=== PATIENT | male | born 1985 | race Caucasian/White ===

== ENCOUNTER 2017-11-02 19:16 | Inpatient (IN) ==
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
[2017-11-02 20:18] LABS: Baso # (Auto) 0.1 th/mm3 (0.0-0.2); Baso % (Auto) 0.7 % (0.0-2.0); Eos # (Auto) 0.1 th/mm3 (0.0-0.4); Eos % (Auto) 0.5 % (0.0-4.0); Hemoglobin 14.2 gm/dL (13.0-17.0); Lymph # (Auto) 3.5 th/mm3 (1.0-4.8); Lymph % (Auto) 28.1 % (9.0-44.0); Mean Corpuscular HGB Conc 33.1 % (32.0-36.0); Mean Corpuscular Hemoglobin 30.1 pg (27.0-34.0); Mean Corpuscular Volume 91.1 fL (80.0-100.0); Mean Platelet Volume 7.7 fL (7.0-11.0); Mono # (Auto) 0.8 th/mm3 (0.0-0.9); Mono % (Auto) 6.2 % (0.0-8.0); Neut # (Auto) 8.1 th/mm3 (1.8-7.7); Neut % (Auto) 64.5 % (16.0-70.0); Platelet Count 353 th/mm3 (150-450); Red Blood Count 4.72 mil/mm3 (4.50-5.90); Red Cell Distribution Width 13.2 % (11.6-17.2); White Blood Count 12.5 th/mm3 (4.0-11.0)
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
[2017-11-02] MEDS ORDERED: Diphtheria/Tetanus/Pertussis Vaccine Inj 0.5 ML Syringe IM ONE (20:55)
[2017-11-02] MEDS ORDERED: oxyCODONE/Acetaminophen 10/325 Tablet PO ONE (20:56)
[2017-11-02] MEDS ORDERED: ceFAZolin 2 GM Premix Inj 2 GM/50 ML PIGGYBACK IV.SIG ONE ×2 (20:56→23:11)
[2017-11-02 21:54] LABS: Alkaline Phosphatase 47 U/L (45-117); Total Protein 7.2 g/dL (6.4-8.2)
[2017-11-02 21:55] LABS: Alanine Aminotransferase 37 U/L (12-78); Albumin 3.8 g/dL (3.4-5.0); Anion Gap 17 meq/L (5-15); Aspartate Aminotransferase 40 U/L (15-37); Blood Urea Nitrogen 10 mg/dL (7-18); Calcium 8.6 mg/dL (8.5-10.1); Carbon Dioxide 21.3 meq/L (21.0-32.0); Chloride 105 meq/L (98-107); Glomerular Filtration Rate 72 mL/min (>89); Glucose,Random 83 mg/dL (74-106); Sodium 143 meq/L (136-145)
[2017-11-02 21:56] LABS: Potassium 3.4 meq/L (3.5-5.1)
[2017-11-02] MEDS ORDERED: HYDROmorphone PF Inj 1 MG/ML Ampul IV.PUSH ONE (22:27)
[2017-11-02] MEDS ORDERED: Sod Chloride 0.9% Inj 1,000 ML IV.SIG ONE (22:29)
[2017-11-02] MEDS ORDERED: HYDROmorphone PF Inj 2 MG/ML Vial IV.PUSH ONE (22:45)
[2017-11-02] MEDS ORDERED: Tetanus/Diphtheria Toxoid Adult Vaccine Inj 0.5 ML Vial IM ONE (23:11)
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
[2017-11-03] MEDS ORDERED: HYDROmorphone PF Inj 1 MG/ML Ampul IV.PUSH ONE (01:37)
[2017-11-03] MEDS ORDERED: HYDROmorphone PF Inj 1 MG/ML Ampul IV.PUSH PRN (01:45)
[2017-11-03] MEDS ORDERED: Chlorhexidine Gluconate 2% 1 Pack (2 Cloths) TOPICAL PRN (04:00)
[2017-11-03] MEDS ORDERED: Chlorhexidine Gluconate 2% 1 Pack (2 Cloths) TOPICAL SCH (04:00)
[2017-11-03] MEDS: HYDROmorphone PF Inj 2 MG/ML Vial IV.PUSH PRN ×4 (04:06→18:38)
[2017-11-03] MEDS: Docusate Sodium 100 MG Capsule PO SCH ×2 (09:12→20:34)
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
[2017-11-03] MEDS: Enoxaparin Inj 30 MG/0.3 ML Syringe SQ SCH (20:33)
[2017-11-03] MEDS ORDERED: Melatonin 5 MG Tablet PO PRN (21:00)
[2017-11-04 07:01] LABS: Baso % (Auto) 0.4 % (0.0-2.0); Eos % (Auto) 0.2 % (0.0-4.0); Hematocrit 46.5 % (39.0-51.0); Hemoglobin 15.6 gm/dL (13.0-17.0); Lymph # (Auto) 1.3 th/mm3 (1.0-4.8); Lymph % (Auto) 14.1 % (9.0-44.0); Mean Corpuscular HGB Conc 33.5 % (32.0-36.0); Mean Corpuscular Hemoglobin 30.8 pg (27.0-34.0); Mean Corpuscular Volume 92.1 fL (80.0-100.0); Mean Platelet Volume 8.1 fL (7.0-11.0); Mono # (Auto) 0.5 th/mm3 (0.0-0.9); Mono % (Auto) 5.5 % (0.0-8.0); Neut # (Auto) 7.1 th/mm3 (1.8-7.7); Neut % (Auto) 79.8 % (16.0-70.0); Platelet Count 237 th/mm3 (150-450); Red Blood Count 5.06 mil/mm3 (4.50-5.90); Red Cell Distribution Width 13.3 % (11.6-17.2); White Blood Count 8.9 th/mm3 (4.0-11.0)
[2017-11-04 07:11] LABS: Anion Gap 9 meq/L (5-15); Blood Urea Nitrogen 7 mg/dL (7-18); Calcium 8.3 mg/dL (8.5-10.1); Carbon Dioxide 27.8 meq/L (21.0-32.0); Chloride 100 meq/L (98-107); Glomerular Filtration Rate Greater Than 89 mL/min (>89); Glucose,Random 101 mg/dL (74-106); Potassium 3.9 meq/L (3.5-5.1); Sodium 137 meq/L (136-145)
[2017-11-04] MEDS: Docusate Sodium 100 MG Capsule PO SCH ×2 (09:16→21:02)
[2017-11-04] MEDS: Enoxaparin Inj 30 MG/0.3 ML Syringe SQ SCH ×2 (09:16→21:02)
[2017-11-04] MEDS: HYDROmorphone PF Inj 2 MG/ML Vial IV.PUSH PRN ×2 (12:20→17:55)
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
[2017-11-04] MEDS ORDERED: Acetaminophen 325 MG Tablet PO PRN (13:44)
[2017-11-05] MEDS: Enoxaparin Inj 30 MG/0.3 ML Syringe SQ SCH (09:43)
[2017-11-05] MEDS: Docusate Sodium 100 MG Capsule PO SCH (09:48)
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
== END 2017-11-05 15:08 | disposition home or self-care (01) ==
LOC: N05 19:16 → NEDA 19:16 → NEPC 19:16 → NEDA 11-03 03:48 → N05 11-03 03:58
PROVIDERS: ADMIT Surgery Trauma Surgery; ATTEND Surgery Trauma Surgery
DX: F12.10 Cannabis abuse, uncomplicated; S60.417A Abrasion of left little finger, initial encounter; S82.65XA Nondisplaced fracture of lateral malleolus of left fibula, initial encounter for closed fracture; S60.415A Abrasion of left ring finger, initial encounter; S40.212A Abrasion of left shoulder, initial encounter; F17.210 Nicotine dependence, cigarettes, uncomplicated; Y92.838 Other recreation area as the place of occurrence of the external cause; S60.312A Abrasion of left thumb, initial encounter; S60.413A Abrasion of left middle finger, initial encounter; S81.812A Laceration without foreign body, left lower leg, initial encounter; S60.411A Abrasion of left index finger, initial encounter; S92.532A Displaced fracture of distal phalanx of left lesser toe(s), initial encounter for closed fracture; S40.812A Abrasion of left upper arm, initial encounter; S71.112A Laceration without foreign body, left thigh, initial encounter; V86.99XA Unspecified occupant of other special all-terrain or other off-road motor vehicle injured in nontraffic accident, initial encounter